=== PATIENT | male | born 1950 | race Caucasian/White ===

== ENCOUNTER 2020-04-01 19:19 | Inpatient (IN) | payer OTHER ==
[~2020-04-01] VITALS: Ht 188 cm; Wt 107.4 kg
[~2020-04-01 19:19] MED LIST: ALPR0.5T6 PO; AMIT50TA PO; ATOR40TA78 PO; BUSP15TA PO; DILT120C64 PO; EMPA25TA PO; ERGO500018 PO; FENO145T19 PO; LIRA0.6P2 SQ; LOSA25TA12 PO; METF10002 PO; OMEP40CA42 PO; ONDA4TAB13 PO; OXYC-307 PO; TEST100V IM; TRIA1CAP3 PO
--- NOTE | 2020-04-01 19:28 | NUR ---
[employer]: EKG PERFORMED IN TRIAGE.
--- NOTE | 2020-04-01 19:58 | NUR ---
A&o x4, answering questions appropriately. C/o sudden onset, atraumatic, nonradiating pain below unblicus with associated R flank pain and gross hematuria. Pt states he had R sided stent placed x1 week at [facility]. Pt states decreased UOP, "it feels like I'm just dribbling out." Bladder scan 62 mL. (+) nausea, denies vomiting. Abd soft, mild subjective distention per pt. Pt states good relief s/p stent placement with small amount of pink tinged urine noted. Denies fever/chills. Denies chest pain. Denies SOB. Ambulating independently, steady gait
--- NOTE | 2020-04-01 20:24 | NUR ---
Pt traveled to XR with XR tech
[2020-04-01 20:29] LABS: BASOPHILS # (AUTO) 0.05 x10^3/uL (0-0.1); BASOPHILS % (AUTO) 1 % (0-1); EOSINOPHILS # (AUTO) 0.64 x10^3/uL (0-0.4); EOSINOPHILS % (AUTO) 7 % (1-7); LYMPHOCYTES # (AUTO) 2.56 x10^3/uL (1-3.4); LYMPHOCYTES % (AUTO) 29 % (22-44); MD NO; MEAN CORPUSCULAR HEMOGLOBIN 28.9 pg (27.5-34.5); MEAN CORPUSCULAR HGB CONC 32.6 g/dL (33.2-36.2); MEAN PLATELET VOLUME 8.5 fL (7.4-10.4); MONOCYTES # (AUTO) 0.73 x10^3/uL (0.2-0.8); MONOCYTES % (AUTO) 8 % (2-9); NEUTROPHILS # (AUTO) 4.99 x10^3/uL (1.8-6.8); NEUTROPHILS % (AUTO) 56 % (42-75); PLATELET COUNT 397 x10^3/uL (130-400); RED BLOOD COUNT 5.23 x10^6/uL (4.38-5.82)
[2020-04-01] MEDS ORDERED: SODIUM CHLORIDE FLUSH 10ML SYR IVF ONE (20:30)
[2020-04-01] MEDS ORDERED: SODIUM CHLORIDE 0.9% 1,000ML IVBOLUS ONE (20:30)
[2020-04-01] MEDS ORDERED: ONDANSETRON 2MG/ML, 2ML ONE (20:55)
[2020-04-01] MEDS ORDERED: MORPHINE SULFATE 4 MG/ML, 1ML ONE ×2 (20:55→23:28)
[2020-04-01 20:59] LABS: ALANINE AMINOTRANSFERASE 23 U/L (12-78); ALBUMIN 3.5 g/dL (3.4-5.0); ANION GAP 10 mmol/L (5-15); CALCIUM 9.7 mg/dL (8.5-10.1); CHLORIDE 106 mmol/L (98-107); CREATININE 1.03 mg/dL (0.7-1.3)
[2020-04-01] MEDS ORDERED: ONDANSETRON 2MG/ML, 2ML IVPush ONE (21:00)
[2020-04-01] MEDS ORDERED: MORPHINE SULFATE 4 MG/ML, 1ML IVPush PRN (21:00)
[2020-04-01 21:02] LABS: ALKALINE PHOSPHATASE 73 U/L (45-117); BILIRUBIN,TOTAL 0.2 mg/dL (0.2-1.0); TOTAL PROTEIN 7.9 g/dL (6.4-8.2)
[2020-04-01 21:15] LABS: MICROSCOPIC INDICATED
[2020-04-01] MEDS ORDERED: POTASSIUM CHLORIDE 20 MEQ TAB.ER.PRT PO ONE (21:30)
[2020-04-01] MEDS ORDERED: POTASSIUM CHLORIDE 20 MEQ TAB.ER.PRT ONE ×2 (22:11→22:13)
[2020-04-01] MEDS ORDERED: LIDOCAINE 2%,20 ML JEL.PF.APP MM ONE ×2 (23:08→23:30)
[2020-04-02] MEDS ORDERED: ENOXAPARIN 40 MG/0.4 ML SQ SCH (01:00)
[2020-04-02] MEDS ORDERED: CEFTRIAXONE PMX 1GM/50ML 50 ML IV ONE (01:00)
[2020-04-02] MEDS ORDERED: POLYETHYLENE GLYCOL 17 GM PACKET PO PRN (01:00)
[2020-04-02] MEDS ORDERED: BISACODYL 10 MG SUPP PR PRN (01:00)
[2020-04-02] MEDS ORDERED: DOCUSATE 100 MG CAPSULE PO PRN (01:00)
[2020-04-02] MEDS ORDERED: ENALAPRILAT 1.25 MG/ML, 2ML IVPush PRN (01:00)
[2020-04-02] MEDS ORDERED: TRAZODONE 50MG TABLET PO PRN (01:00)
[2020-04-02] MEDS ORDERED: ACETAMINOPHEN 325 MG TABLET PO PRN (01:00)
[2020-04-02] MEDS ORDERED: LABETALOL 5MG/ML, 20ML IVPush PRN (01:00)
[2020-04-02] MEDS ORDERED: ONDANSETRON 2MG/ML, 2ML IVPush PRN (01:00)
[2020-04-02] MEDS ORDERED: IBUPROFEN 600 MG TABLET PO PRN (01:00)
--- NOTE | 2020-04-02 01:20 | NUR ---
3-way bean placed without difficulty. Multiple large clots noted in immediate output. Irrigated 1L by hand, output from gross hematuria to pink tinged. Pt states adequate pain relief. CBI set up with 1st liter in progress upon transporting pt to floor. Inpatient RN aware CBI in progress. Hospitalist resident at bedside for admission, verbal order for CBI.
--- NOTE | 2020-04-02 01:20 | NUR ---
Report given to Edyta RAMESH
[2020-04-02 01:27] VITALS: BP 175/101
[2020-04-02 01:28] LABS: ANION GAP 5 mmol/L (5-15); CALCIUM 9.2 mg/dL (8.5-10.1); CHLORIDE 106 mmol/L (98-107); CREATININE 0.92 mg/dL (0.7-1.3)
[2020-04-02] MEDS ORDERED: ELAVIL MC SCH (01:30)
[2020-04-02 03:12] VITALS: BP 128/77
[2020-04-02] MEDS ORDERED: MORPHINE SULFATE 4 MG/ML, 1ML ONE (04:23)
[2020-04-02] MEDS: morphine SULFATE 10 MG/ML, 1ML IVPush PRN ×2 (04:25→09:54)
[2020-04-02] MEDS ORDERED: POTASSIUM CHLORIDE 20 MEQ TAB.ER.PRT PO ONE (06:00)
[2020-04-02 07:28] VITALS: BP 130/78
[2020-04-02] MEDS ORDERED: metFORMIN 500 MG TABLET PO SCH (09:00)
[2020-04-02] MEDS ORDERED: BUSPIRONE 5 MG TABLET PO SCH (09:00)
[2020-04-02] MEDS ORDERED: LOSARTAN 25MG TABLET PO SCH (09:00)
[2020-04-02] MEDS ORDERED: DILTIAZEM 120 MG CAP.ER.24H PO SCH (09:00)
[2020-04-02] MEDS ORDERED: OMEPRAZOLE 20 MG CAPSULE.DR PO SCH (09:00)
[2020-04-02] MEDS ORDERED: TEMPLATE NON-FORMULARY MED. (Liraglutide (Victoza 3-Pak) 1.8 MG) SQ SCH (09:00)
[2020-04-02] MEDS ORDERED: FENOFIBRATE 145 MG TABLET PO SCH (21:00)
[2020-04-02] MEDS ORDERED: AMITRIPTYLINE 50 MG TABLET PO SCH ×2 (21:00)
[2020-04-02] MEDS ORDERED: ATORVASTATIN 40 MG TABLET PO SCH (21:00)
== END 2020-04-02 12:40 | disposition left against medical advice (07) | DRG 690 ==
LOC: ED 21:50 → EDIP 04-02 00:34 → 4NW 04-02 01:16
PROVIDERS: ADMIT Family Medicine; ATTEND Family Medicine
DX: N39.0 Urinary tract infection, site not specified (principal); R31.0 Gross hematuria; N13.30 Unspecified hydronephrosis; E11.9 Type 2 diabetes mellitus without complications; E78.5 Hyperlipidemia, unspecified; I10 Essential (primary) hypertension; I25.10 Atherosclerotic heart disease of native coronary artery without angina pectoris; I25.2 Old myocardial infarction; Z87.442 Personal history of urinary calculi; Z87.891 Personal history of nicotine dependence; Z98.1 Arthrodesis status; F32.9 Major depressive disorder, single episode, unspecified; K21.9 Gastro-esophageal reflux disease without esophagitis; R10.2 Pelvic and perineal pain
CPT/HCPCS: 36415; 74018; 76770; 80048; 80053; 81001; 85025; 87077; 87086; 87186; 93005; 96374; 96375; 99285; G0378; J0696; J2405; J2270; J7030